=== PATIENT | male | born 1955 | race Caucasian/White ===

== ENCOUNTER → 2016-06-05 | Outpatient (CLI) | payer MEDICARE, OTHER ==
[~2016-06-05] MED LIST: ACETAMINOPHEN GT; ACETAMINOPHEN PO; ACETAMINOPHEN325 MG FT; ACETAMINOPHEN325 MG GT; ACETAMINOPHEN650 M1 GT; ADULT MUCU100 MG/5 M GT; ADULT WAL-100 MG/5 M GT; ALAVERT10 MG GT; ALB/IPRATROPIUM/1 E1 INH; ALBUTEROL; ALBUTEROL MININEB NEB; ALBUTEROL0.83 MG/ML INH; ALBUTEROL17 GM NEB; ALENDRONATE SOD70 MG GT; APAP325 M1 GT; ARTIFICIAL TEAR1 DRP OP; ARTIFICIAL TEAR15 M3 OU; ARTIFICIAL TEARS OU; ARTIFICIAL15 ML OPTH OU; ATROVENT; ATROVENT 0.03%30 ML INH; AUGMENTIN PO; AZACTAM IV; BACID; BACID FT; BACID GT; BACID PEG; BACID PO; BAZA ANTIFUNGAL57 GM TOP; BAZA PROTECT CR57 GM TOP; BISACODYL10 MG/SUPP; BISACODYL10 MG/SUPP PR; BROVANA15 MCG/2 M INH; BUDESONIDE0.5 MG/2 M INH; CALCIUM 500 + D1 TAB; CARDURA; CARDURA GT; CARDURA PO; CARDURA1 M1 PEG; CARDURA1 MG GT; CARDURA1 MG PEG; CARDURA2 MG FT; CARDURA2 MG GT; CARMEX TOP; CENTRUM; CENTRUM COMPLE1 EACH PEG; CENTRUM GT; CENTRUM MU9 MG/15 ML GT; CENTRUM MU9 MG/15 ML PEG; CENTRUM PO; CENTRUM240 ML FT; CENTRUM240 ML PO; CERTAVITE GT; CHEST CONG100 MG/51 GT; CHILDREN'S100 MG/55 GT; CIPROFLOXA IV; CITRATE OF MAG296 ML PO; CLARITIN10 M2 FT; CLARITIN10 M2 GT; CLARITIN10 M3 GT; CLARITIN10 M3 PEG; CLARITIN10 MG; CLARITIN10 MG GT; CLINDAMYCI IV; CLINDAMYCIN HC300 MG GT; COLACE; COMPLETE M9 MG/15 ML GT; COUGH SYRU100 MG/5 M GT; CYTOTEC; CYTOTEC GT; CYTOTEC PO; DESITIN DIAPER113 GM TOP; DESITIN60 GM TOP; DIASENSE MAGNE400 MG PEG; DIASTAT10 MG; DIASTAT10 MG PR; DOXAZOSIN MESYLA1 MG GT; DOXAZOSIN MESYLA2 MG GT; DUONEB 2.5-0.5 M3 ML INH; DUONEB 2.5-0.5 M3 ML NEB; E.E.S. 200200 MG/51 GT; E.E.S.-GRA200 MG/5 M; E.E.S.-GRA200 MG/5 M GT; ERYTHROMYC200 MG/5 M FT; ERYTHROMYC200 MG/5 M GT; ERYTHROMYC200 MG/51 PEG; ERYTHROMYCIN EYE OU; EUCERIN CREME454 GM TP; FINASTERIDE5 MG GT; FLAGYL PO; FLEET RC; FOSAMAX70 MG PO; FUROSEMIDE40 MG GT; FUROSEMIDE40 MG PEG; GAS RELIEF GT; GAS RELIEF40 MG/0.6 GT; GENAPAP325 MG GT; GENASYME GT; GLACIAL ACETIC A1 ML AU; IPRAT-ALBUT 0.5-3 ML INH; JEVITY; K-DUR20 ME2 GT; K-LOR HOSPITAL20 MEQ GT; K-SOL20 MEQ/15 GT; K-SOL20 MEQ/15 PEG; KCL FT; KCL GT; KCL PEG; KCL PO; KEPPRA PEG; KEPPRA XR750 MG PEG; KEPPRA1000 MG GT; KEPPRA1000 MG PEG; KEPPRA500 M1 GT; KEPPRA500 M2 FT; KEPPRA500 M2 GT; KEPPRA500 M2 PEG; KEPPRA500 M2 PO; KEPPRA500 MG GT; KEPPRA500 MG/51 PEG; KEPPRA750 M1 PO; KEPPRA750 MG; KEPPRA750 MG GT; KEPPRA750 MG PEG; KEPPRA750 MG PO; KLOR-CON GT; KLOR-CON PO; LACTULOSE10 G/15 ML GT; LACTULOSE10 G/15 ML PO; LASIX GT; LASIX PEG; LASIX PO; LASIX20 MG FT; LASIX20 MG GT; LASIX20 MG PEG; LASIX20 MG PO; LEVAQUIN PO; LEVAQUIN750 M1 PO; LEVAQUIN750 MG PEG; LEVAQUIN750 MG PO; LEVETIRACETAM GT; LEVOTHROID75 MCG; LEVOTHYROXINE100 MCG FT; LEVOTHYROXINE100 MCG GT; LEVOTHYROXINE100 MCG PEG; LEVOXYL125 MCG GT; LISINOPRIL2.5 MG GT; LISINOPRIL5 MG PEG; LORATADINE GT; LOVASTATIN10 MG GT; LOVASTATIN10 MG PEG; LOVASTATIN20 M1 GT; LOVASTATIN20 M1 PEG; LOVENOX120 MG/0.8 INJ; MAG-OX 400400 M1 GT; MAGNESIUM400 MG GT; MAGNESIUM400 MG PEG; MAGOX 400400 MG GT; MEDROL DOSEPAK4 MG PO; METOCLOPRAMI10 MG/ML GT; METOCLOPRAMID5 MG/M2 GT; METOCLOPRAMIDE GT; METOCLOPRAMIDE H5 MG GT; METOCLOPRAMIDE H5 MG PEG; MEVACOR GT; MEVACOR PEG; MIACALCIN4 ML; MIACALCIN4 ML NS; MIRALAX17 G2 GT; MIRALAX17 GM DOB; MIRALAX17 GM FT; MIRALAX17 GM GT; MIRALAX17 GM PEG; MIRALAX255 GM; MIRALAX255 GM GT; MIRALAX255 GM PEG; MIRALAX255 GM PO; MONTELUKAST SOD10 MG GT; MONTELUKAST SOD10 MG PEG; MUCOMYST200 MG/ML INH; MUCOMYST200 MG/ML NEB; MULTI VITAMIN; MULTIVITAM9 MG/15 ML GT; MYLICON40 MG/0.1 DOB; MYLICON40 MG/0.1 FT; MYLICON40 MG/0.1 GT; MYLICON40 MG/0.1 PEG; MYLICON40 MG/0.6; MYLICON40 MG/0.6 PO; NEOSPORIN28 GM TOP; NEXIUM 24HR20 MG GT; NEXIUM GT; NEXIUM PEG; NEXIUM40 MG/PACK GT; NEXIUM40 MG/PACK PEG; NORCO 5/325 TAB1 TAB PO; OMEPRAZOLE20 M2 GT; OMEPRAZOLE40 MG GT; OSMOLITE 1.21000 ML PEG; OTICIN HC DROPS10 ML OT; OXYGEN; PAIN RELIEVER325 M1 PEG; PATIENT'S PHARMACY; PERFOROMIS20 MCG/2 M INH; PERIDEX473 ML PO; PERIDEX480 ML; PERIDEX480 ML PO; POTASSIUM PEG; POTASSIUM40 MEQ/15 GT; PREDNISONE; PREDNISONE GT; PREDNISONE PO; PREVACID; PREVACID GT; PRILOSEC20 MG FT; PRINIVIL5 MG FT; PROBIOTIC1 EACH GT; PROSCAR5 MG; PROSCAR5 MG FT; PROSCAR5 MG GT; PROSCAR5 MG PEG; PROSCAR5 MG PO; PROVENTIL0.83 MG/ML INH; PULMICORT INH; PULMICORT0.25 MG/2 IH; PULMICORT0.5 MG/2 M IH; PULMICORT0.5 MG/2 M INH; PULMICORT0.5 MG/2 M NEB; PULMICORT0.5 MG/21 IH; REGLAN; REGLAN GT; REGLAN5 MG FT; ROBITUSSIN COU118 M5 PO; ROBITUSSIN100 MG/51 FT; ROBITUSSIN100 MG/51 PEG; SENNA CONCENTR8.6 MG GT; SENNA GT; SENNA8.8 MG/5 M; SENNA8.8 MG/5 M GT; SENNA8.8 MG/5 M PEG; SENNA8.8 MG/51 GT; SENOKOT60 M1 GT; SENOKOT60 ML FT; SENOKOT60 ML GT; SENOKOT60 ML PEG; SILVER NITRATE EXT; SILVER NITRATE30 GM TP; SINGULAIR; SINGULAIR FT; SINGULAIR GT; SINGULAIR PO; SYNTHROID; SYNTHROID GT; SYNTHROID PEG; SYNTHROID PO; SYNTHROID0.1 MG GT; SYNTHROID100 MCG/5 GT; SYNTHROID125 GT; SYNTHROID125 PEG; THERAGRAN; TRIAMCINOLONE AC1 GM EXT; TYLENOL325 M1 GT; TYLENOL325 M1 PEG; VANCOMYCIN HCL1 GM IV; VANCOMYCIN HCL1 GM IVF; VANCOMYCIN750 MG/250 IV; VANTIN200 MG PEG; VASOTEC; VIBRAMYCIN100 M1 PEG; VISINE TEARS DR15 ML OP; VISINE15 ML OU; VIT D; VITAMIN C GT; VITAMIN C PO; VITAMIN D-32000 UNIT GT; VITAMIN D1000 UNI1 FT; VITAMIN D1000 UNI1 GT; VITAMIN D1000 UNI1 PEG; VITAMIN D1000 UNI2 GT; VITAMIN D1000 UNIT GT; VITAMIN D1000 UNIT PEG; VITAMIN D1000 UNIT PO; VITAMIN D10000 UNIT PEG; VOSOL HC EAR DR10 M1 AU; VOSOL HC OTIC S10 ML AU; VOSOL HC OTIC S10 ML OU; XOPENEX; ZOSYN IV; [UNRECOGNIZED DRUG - OTHER]; [UNRECOGNIZED DRUG - OTHER] GT; [UNRECOGNIZED DRUG - OTHER] GT; [UNRECOGNIZED DRUG - OTHER] IV; [UNRECOGNIZED DRUG - OTHER] IV; [UNRECOGNIZED DRUG - OTHER] PEG; [UNRECOGNIZED DRUG - OTHER] PEG; [UNRECOGNIZED DRUG - OTHER] TOP; [UNRECOGNIZED DRUG - OTHER] TOP
--- NOTE | ~2016-06-05 | XA189 ---
[facility] A Service of [facility] & [facility] RADIOLOGY TEXT RESULTS PATIENT: RADHA MARTINEZ LOCATION: [facility] : 53 UNIT #: [id number] AGE: [address]: Tristan Porter MD SEX: M ORDER DR: [id number] [place], [place] [address] [id number] O MR#: [id number] Acc #: [id number] NAME: RADHA MARTINEZ : 1955 SEX: M STUDY DATE/TIME: 06/05/2016 16:06 UNIT: [facility] ROOM: STUDY DESCRIPTION: XA Replace GJ Tube Attending Physician: Tristan Porter Sr., M.D. Ordering Physician: Tristan Porter Sr., M.D. Primary Care Physician: Primary Care Physician No MEDICAL IMAGING REPORT This report is preliminary unless electronic signature is present EXAM Gastrojejunostomy tube replacement HISTORY The patient's existing gastrojejunostomy tube is clogged. TECHNIQUE Informed consent was obtained from the patient's provider service representative. The existing jejunostomy portion of the gastrojejunostomy tube was injected with Gastrografin opacifying the duodenum. The tip of the tube was noted to be in the second portion of the duodenum. An attempt was made to pass a guidewire through the tube but the tube was too clogged for the guidewire to pass to the tip. The balloon was deflated and the tube was removed. A new gastrojejunostomy tube was placed into the stomach and a guidewire was passed through it into the duodenum. Initially, a hydrophilic glidewire was used followed by an Amplatz wire. The tube was eventually manipulated into the third portion of the duodenum in satisfactory position. The balloon was inflated and cinched back against the anterior abdominal wall in satisfactory position. Total fluoroscopy time 14.4 minutes. 1 spot film obtained. IMPRESSION Successful replacement of the gastrojejunostomy tube under fluoroscopic guidance. Dictated by... Conrad Hawthorne M.D. THIS IS AN ELECTRONICALLY VERIFIED REPORT Conrad Hawthorne M.D. at 06/06/2016 5:02 PM KATE/jd [facility]. [facility] A Service of [facility] & [facility] RADIOLOGY TEXT RESULTS PATIENT: RADHA MARTINEZ LOCATION: [facility] #: [id number] : 51 UNIT #: [id number] AGE: [address]: Tristan Porter MD SEX: M ORDER DR: TD: 06/06/2016 09:59 JOB #: [id number] MEDICAL IMAGING REPORT COPY
== END | disposition home or self-care (01) ==
LOC: CIVR 13:51
DX: K94.23 Gastrostomy malfunction (principal); F73 Profound intellectual disabilities; G40.909 Epilepsy, unspecified, not intractable, without status epilepticus
CPT/HCPCS: 99144; 99153; J2250; J3010

== ENCOUNTER → 2016-08-13 | Outpatient (CLI) | payer MEDICARE, OTHER ==
--- NOTE | ~2016-08-13 | XA189 ---
[facility] A Service of [facility] RADIOLOGY TEXT RESULTS PATIENT: RADHA MARTINEZ LOCATION: [facility] : 53 UNIT #: [id number] AGE: [address]: Tristan Porter MD SEX: M ORDER DR: [id number] [address] [place], [place] [address] [id number] O MR#: [id number] Acc #: [id number] NAME: RADHA MARTINEZ. : 1955 SEX: M STUDY DATE/TIME: 08/13/2016 10:40 UNIT: [facility] ROOM: STUDY DESCRIPTION: XA Replace GJ Tube Attending Physician: Tristan Porter Sr., M.D. Referring Physician: Tristan Porter Sr., M.D. Ordering Physician: Tristan Porter Sr., M.D. Primary Care Physician: Primary Care Physician No MEDICAL IMAGING REPORT This report is preliminary unless electronic signature is present EXAM GJ tube replacement. INDICATIONS 60-year-old male with history of malnutrition and GJ tube dependent feeding whose tube is not working. The fluoroscopy time was 7 minutes. Reference air kerma 136 mGy. The risks, benefits and alternatives of the procedure were discussed with the patient's family roofing sales representative and informed consent was obtained. In the procedure room a timeout was performed confirming correct patient and procedure. All elements of maximum sterile-barrier technique utilized according guidelines appropriate for the seizure. TECHNIQUE/FINDINGS Initial fluoroscopy of the existing tube demonstrated that it is looped in the stomach. This tube was removed over a guidewire. Next, I was able to advance a Glidewire and C2 catheter into the jejunum. Next a 22-Persian GJ-tube was advanced over the superstiff glidewire, however the tube could not make the angle and flipped into the stomach. The gastric retention balloon was filled with 8 mL of sterile water and the tube was injected. The tip of the tube located within the duodenal bulb. The patient tolerated procedure well without immediate complications. IMPRESSION Attempted GJ tube replacement. Due to the angle of the insertion of the tube relative to the duodenum, I was unable to advance the tube into the jejunum and most of it is looped in the stomach. The tip of the tube is located in the duodenum. I would recommend consultation with GI to see if the tube can be pulled into the jejunum via endoscopic means. If the patient has risk for aspiration and I would put the patient on aspiration precautions. [facility] A Service of [facility] RADIOLOGY TEXT RESULTS PATIENT: RADHA MARTINEZ LOCATION: [facility] : 53 UNIT #: [id number] AGE: [address]: Tristan Porter MD SEX: M ORDER DR: Dictated by... Syd Weaver M.D. THIS IS AN ELECTRONICALLY VERIFIED REPORT Syd Weaver M.D. at 08/15/2016 7:33 AM Christiano TD: 08/14/2016 06:37 JOB #: [id number] MEDICAL IMAGING REPORT COPY
== END | disposition home or self-care (01) ==
LOC: CIVR 08:10
DX: Z43.1 Encounter for attention to gastrostomy (principal); Z88.0 Allergy status to penicillin; Z88.1 Allergy status to other antibiotic agents; Z88.8 Allergy status to other drugs, medicaments and biological substances
CPT/HCPCS: C1725; C1769; C1887; J2250; J3010; Q9967

== ENCOUNTER 2016-09-12 09:34 | Inpatient (IN) | payer MEDICARE, OTHER ==
--- NOTE | ~2016-09-12 | EKG ---
PATIENT: RADHA MARTINEZ UNIT #: [id number] Ventricular Rate: 77 BPM Atrial Rate: 77 BPM P-R Interval: 136 ms QRS Duration: 118 ms Q-T Interval: 402 ms QTC Calculation(Bezet): 454 ms P [place]: 34 degrees Calculated R [place]: 41 degrees Calculated T [place]: 46 degrees Diagnosis Line: Normal sinus rhythm Diagnosis Line: Non-specific intra-ventricular conduction delay Diagnosis Line: Cannot rule out , old Inferior infarct Diagnosis Line: Borderline ECG Diagnosis Line: No previous ECGs available Diagnosis Line: Confirmed by LEESA PARNELL MD ([id number]) on 09/13/2016 Diagnosis Line: 6:04:39 AM INTERPRETING MD: PARMJIT ERAZO
--- NOTE | ~2016-09-12 | CR63 ---
[facility] A Service of [facility] & [facility] RADIOLOGY TEXT RESULTS PATIENT: RADHA MARTINEZ LOCATION: [facility] : 53 UNIT #: [id number] AGE: [address]: Rylee Villaseñor MD SEX: M ORDER DR: [id number] [facility] [address]. [place], [place] [address] [id number] I MR#: [id number] Acc #: [id number] NAME: RADHA MARTINEZ : 1955 SEX: M STUDY DATE/TIME: 09/17/2016 7:50 UNIT: [facility] ROOM: [facility] STUDY DESCRIPTION: CR Chest 2 View Attending Physician: Rylee Villaseñor M.D. Referring Physician: Self Referral-Refer Use Only Ordering Physician: Chico Hubbard M.D. Primary Care Physician: Primary Care Physician No MEDICAL IMAGING REPORT This report is preliminary unless electronic signature is present EXAM Chest x-ray HISTORY Cough for the past 2 days. TECHNIQUE 2 views of the chest were obtained and compared with 09/13/2016 FINDINGS Mild cardiomegaly is seen. Bilateral perihilar infiltrates are noted. These infiltrates show no significant change from previous exam. No pleural fluid is seen and the vascular markings are normal. IMPRESSION Bilateral perihilar infiltrates are again noted and not significantly changed from previous exam. No new infiltrates are seen. Dictated by... Conrad Hawthorne M.D. THIS IS AN ELECTRONICALLY VERIFIED REPORT Conrad Hawthorne M.D. at 09/17/2016 3:48 PM RLF/kali TD: 09/17/2016 10:29 JOB #: [id number] MEDICAL IMAGING REPORT Page 1 of 1 COPY
--- NOTE | ~2016-09-12 | CO ---
Unit #: [id number] #: [id number] Patient: RADHA SULTANA [id number] [address] [place], [place] [address] [id number] MR#: [id number] NAME: RADHA SULTANA. ROOM: 216 Age: 61 Sex: M Admission Date: 09/12/2016 : 1955 Attending Physician: Rylee Villaseñor M.D. Consultation Date: 09/13/2016 CONSULTATION REPORT HISTORY OF PRESENT ILLNESS Mr. Sultana is a 61-year-old resident of [place], who was sent here because of decreased O2 sats. He was sent to the emergency room. His O2 saturation was 88% on room air. He was somewhat tachycardic. Blood pressure was 95/61. He was admitted with possible sepsis and healthcare acquired pneumonia. Chest x-ray showed marked rotation and possible right lung infiltrate. He is unable to provide any history. PAST MEDICAL HISTORY Significant for profound mental retardation, chronic aspiration, history of PEG tube placement, history of colostomy, history of seizure disorder, hypothyroidism, history of BPH, cerebral palsy. PAST SURGICAL HISTORY PEG tube placement, colostomy, multiple EGDs and colonoscopies. FAMILY HISTORY Unknown. ALLERGIES Zosyn, penicillins, pneumococcal vaccine, Reglan. SOCIAL HISTORY Unknown. SOCIAL HISTORY Resident of [place]. REVIEW OF SYSTEMS Not possible patient. Nonverbal. PHYSICAL EXAMINATION VITAL SIGNS: Blood pressure is 103/46, pulse 83, respiratory rate 18, afebrile. T-max 100.4. HEENT: Normocephalic and atraumatic. Left cornea opacified. Nasal passages patent. Oral cavity patent. Poor dentition. NECK: Supple. Trachea midline. No cervical or supraclavicular lymphadenopathy. LUNGS: Scattered rhonchi. CARDIAC: Regular rate and rhythm. Could not appreciate murmur, rub, or gallop. ABDOMEN: Nontender. Bowel sounds present. No hepatosplenomegaly. Colostomy tube, G-tube. He has flexion contractures. EXTREMITIES: No edema. Unit #: [id number] #: [id number] Patient: RADHA SULTANA SKIN: Warm and dry. NEUROLOGIC: Affect calm. LABORATORY STUDIES BMP remarkable for glucose of 65, otherwise unremarkable. BNP is 69. Lactic acid is 5.6 on admission, currently it is 0.6. Coags were normal. White blood cell count was 7400, hematocrit of 38.2, platelet count normal. IMPRESSION 1. Possible right-sided pneumonia, methicillin-resistant Staphylococcus aureus/gram negative. 2. Acute hypoxemic respiratory failure. 3. Possible sepsis syndrome. 4. Profound mental retardation. 5. Seizure disorder. 6. Cerebral palsy. 7. DNR status. PLAN Cover with broad-spectrum antibiotics. Obtain cultures and deescalate antibiotics based on culture results. Fluid resuscitation, nutrition, DVT prophylaxis. Further recommendations pending. Dictated by... Chico Hubbard M.D. FUNMI/alicia TD: 09/14/2016 02:02 JOB #: [id number] CONSULTATION REPORT Page 1 of 1 X Chico Hubbard MD X CONSULTATION REPORT
--- NOTE | ~2016-09-12 | CR72 ---
[facility] A Service of [facility] & [facility] RADIOLOGY TEXT RESULTS PATIENT: RADHA MARTINEZ LOCATION: [facility] : 53 UNIT #: [id number] AGE: [address]: Brent Bingham MD SEX: M ORDER DR: [id number] [facility] [address] [place], [place] [address] [id number] MR#: [id number] Acc #: [id number] NAME: RADHA MARTINEZ. : 1955 SEX: M STUDY DATE/TIME: 09/12/2016 8:34 UNIT: [facility] ROOM: STUDY DESCRIPTION: CR Chest Single View Portable Attending Physician: Brent Bingham M.D. Referring Physician: Maikel Self Referred Ordering Physician: Brent Bingham M.D. Primary Care Physician: No Primary Care Physician MEDICAL IMAGING REPORT This report is preliminary unless electronic signature is present EXAM AP portable chest, 09/12/2016. HISTORY 61-year-old male in the ED complaining of new onset shortness of air today. Past history of congestive heart failure. Asthma. TECHNIQUE AP portable chest x-ray. FINDINGS Limited examination due to patient positional rotation to the right. There may be focal infiltrate or atelectasis in the right lung base. Remaining portions of both lungs are clear. Mild cardiomegaly with normal pulmonary vascularity. IMPRESSION Possible infiltrate or atelectasis right lung base. Dictated by... Josh Barcenas M.D. THIS IS AN ELECTRONICALLY VERIFIED REPORT Josh Barcenas M.D. at 09/12/2016 1:32 PM AYALAW/dorie TD: 09/12/2016 10:00 JOB #: [id number] MEDICAL IMAGING REPORT Page 1 of 1 COPY
--- NOTE | ~2016-09-12 | HP ---
Unit #: [id number] #: [id number] Patient: RADHA MARTINEZ [id number] [address] [address] [id number] MR#: [id number] NAME: RADHA MARTINEZ ROOM: Age: 61 Sex: M Admission Date: 09/12/2016 : 1955 Attending Physician: Brent España M.D. Referring Physician: Self Referral-Refer Use Only Primary Care Physician: No Primary Care Physician HISTORY AND PHYSICAL CHIEF COMPLAINT Hypoxia. HISTORY OF PRESENTING ILLNESS A 61-year-old male with multiple medical problems is a resident of [facility]. He is not able to provide any history. Most of the history was taken from the chart and from the sitter who is at the bedside. The patient resides in [facility]. He has profound mental retardation. The patient was found to be hypoxic in [facility] and was transferred to ER. The patient's saturation was 88% on room air on admission and the patient was tachycardiac. The patient's blood pressure is low, 95/61. The patient is being admitted with sepsis and healthcare-facility acquired pneumonia. There is no history of cough or sputum production. There is no history of vomiting. No history of fever. PAST MEDICAL HISTORY 1. Profound mental retardation. 2. History of chronic aspiration. 3. History of PEG placement. 4. Seizure disorder. 5. History of hypothyroidism. 6. History of BPH. 7. History of cerebral palsy. 8. History of colostomy in the past. PAST SURGICAL HISTORY 1. History of PEG placement. 2. History of colostomy. 3. History of multiple EGDs and colonoscopy. SOCIAL HISTORY The patient is a resident of [facility]. FAMILY HISTORY Unknown. ALLERGIES Zosyn, amoxicillin, Augmentin, pneumococcal vaccine and Reglan. REVIEW OF SYMPTOMS As per history of presenting illness, the patient is not able to provide any history. Unit #: [id number] #: [id number] Patient: RADHA MARTINEZ PHYSICAL EXAMINATION GENERAL APPEARANCE: The patient is lying comfortably in bed. VITAL SIGNS: Oxygen saturation 88% on room air. Blood pressure 95/61. The patient is hypotensive. Respiratory rate 14. Pulse 77. HEENT: Head is normocephalic. Eye movements are normal. The patient is moving his extremities, upper and lower. CHEST: Decreased air entry. Bilateral crackles are heard. CARDIOVASCULAR: S1, S2 positive. Regular rhythm. ABDOMEN: Soft. PEG tube is in place. Colostomy bag is in place. EXTREMITIES: Negative edema. The patient has contractures. CENTRAL NERVOUS SYSTEM: Awake, alert and moving all his extremities, not able to follow any commands because of his mental retardation and cerebral palsy. DIAGNOSTIC STUDIES LABORATORY: WBC 7.4, hemoglobin 12.4, hematocrit 38.2, platelet count 166. PT and INR 10.4 and 1.0. Sodium 139, potassium 4.3, chloride 100, BUN 15, creatinine 0.7. Liver enzymes are stable. Lactic acid 5.6. BNP 66. Troponin is less than 0.05. IMAGING: Chest x-ray was done which shows possible infiltrate in the right lung base. ASSESSMENT AND PLAN The patient is being admitted to [facility] with the diagnosis of: 1. Acute hypoxic respiratory failure. 2. Sepsis. 3. Healthcare-acquired pneumonia. 4. Chronic aspiration. 5. Hypothyroidism. 6. Seizure disorder. 7. Hyperlipidemia. 8. Profound mental retardation. PLAN 1. Admit to med/surg. Dr. Rufus Hubbard has been consulted. The patient is on two liters oxygen and saturation is 90%. 2. Lovenox 40 mg subcu daily. 3. Continue Protonix for peptic ulcer disease prophylaxis. The patient is being started on IV vancomycin, tobramycin and aztreonam. Pharmacy will be consulted to dose his medications. 4. Sputum culture will be done. The patient is being started on sepsis protocol. Repeat lactic acid will be done. IV fluids normal saline at 100 mL/hour. Mini neb treatment will be started. Home medications have been reviewed and adjusted. Blood pressure medications are on hold at this time because of hypertension. 5. Feeds will be continued as per [facility]. Please refer to progress note for further orders. Dictated by Yumiko Carmona TD: 09/12/2016 13:52 JOB #: [id number] Unit #: [id number] #: [id number] Patient: RADHA MARTINEZ HISTORY AND PHYSICAL Page 1 of 1 X Rylee Villaseñor MD HISTORY AND PHYSICAL
--- NOTE | ~2016-09-12 | DS ---
Unit #: [id number] #: [id number] Patient: RADHA SULTANA [id number] [address] [address] [id number] I MR#: [id number] NAME: RADHA SULTANA ROOM: 216 Age: 61 Sex: M Admission Date: 09/12/2016 : 1955 Discharge Date: 09/18/2016 Attending Physician: Rylee Villaseñor M.D. Referring Physician: Self Referral-Refer Use Only Primary Care Physician: No Primary Care Physician DISCHARGE SUMMARY FINAL DIAGNOSES 1. Acute respiratory failure. 2. Aspiration pneumonia. 3. Seizure disorder. 4. Profound mental retardation. 5. Hypothyroidism. 6. Chronic aspirations. DISCHARGE MEDICATIONS 1. IV vancomycin 1 g q.12 h. for 7 more days as per Dr. Hubbard. 2. Aztreonam 2 g q.8 h. for 7 more days as per Dr. Hubbard. 3. Continue the rest of the home medications. Please note medication reconciliation will be faxed to [facility] facility. CONSULTANTS Dr. Rufus Hbubard. DIAGNOSTIC DATA LABORATORY: On discharge, blood cultures were no growth. BMP shows sodium 140, potassium 4.4, chloride 110, BUN 12, creatinine 0.5. CBC shows white blood cell count 7.4, hemoglobin 9.4, hematocrit 28.3, platelets 135, procalcitonin level 0.10, lactic acid 5.6 on admission, BNP 69. IMAGING: Chest x-ray, PA and lateral, show bilateral perihilar infiltrates. HOSPITAL COURSE Mr. Radha Sultana is a 61-year-old male who is very well known to us. He has had multiple admissions with aspiration pneumonia. He was sent from [place] with decreased oxygen saturation. His O2 saturation was 88% on room air. Blood pressure was 95/61. The patient was admitted with possible sepsis and healthcare acquired pneumonia. Dr. Rufus Hubbard was consulted. The patient was started on broad spectrum IV antibiotics with IV Vancomycin, Zosyn and tobramycin. Tobramycin was discontinued on 09/17/2016. He will need to continue two antibiotics for seven more days. The patient's room air pulse oximetry was 97%. The patient will need 2 liters of O2 to keep saturations above 94%. The patient is stable at this time and is being discharged back to [facility] in stable condition. PHYSICAL EXAMINATION VITALS: At discharge, blood pressure 110/49, respiratory rate 15, pulse Unit #: [id number] #: [id number] Patient: RADHA SULTANA 87, temperature 98.9. HEENT: Head is normocephalic. CHEST: Decreased air entry bilaterally. HEART: S1 and S2 positive. Regular rhythm. DISPOSITION The patient is being discharged to [facility]. DISCHARGE INSTRUCTIONS 1. Medications per medication reconciliation. 2. Follow-up pulmonary clinic with Dr. Hubbard in one week. Dictated by... Yumiko Carmona TD: 09/18/2016 11:25 JOB #: [id number] DISCHARGE SUMMARY Page 1 of 1 X Rylee Villaseñor MD X DISCHARGE SUMMARY
--- NOTE | ~2016-09-12 | A ---
[facility] Nutrition Therapy DATE: 09/13/16 Patient: RADHA MARTINEZ Physician: NAEL Address: [facility] Room/Bed: [address] [place] [address], Zip: [place] [address] Admit Date: 09/12/16 Date of : [birth year] Height: Weight: 132 59.87 NUTRITIONAL ASSESSMENT: REASON: 1 pt RE: Tube Feed Assessment 61 yo male admitted for hypoxia PMH: Mental retardation, chronic aspiration, s/p PEG, seizure disorder, hypothyroidism, cerebral palsy, BPH Anthropometrics: Ht: 5'4" Wt: 60 kg (132#) BMI: 22.7 Labs: Gluc 65 Meds: NaCl, K, Lipitor, Miralax, Protonix, Vitamin D, Synthroid (PO) I/O & Bowel function: 1400/3, last BM 09/13 Skin Integrity: G tube site (abd), healed wound (coccyx), red rash (fron coban L AC), no edema noted Estimated Nutrition Needs: 3377-3383 kcal (25-30 kcal/kg) 72-90 g protein (1.2-1.5 g/kg) Assessment: Chart reviewed, events noted. Pt non-verbal, resident of [facility]. Per chart, pt receives Osmolite 1.2 @ 115 mL/hr from 9A-8P at [facility] w/ 50 mL flushes q 4 hrs. This provides 1518 kcal/ 70 g protein/ 1037 mL free H2O. See recommendations below. Dx: Inadequate oral intake RT PMH AEB PEG TUBE, need for sole source enteral nutrition support. Intervention: 1. Enteral nutrition Monitoring, Evaluation and Goals: 1. Enteral nutrition; provide >80% of estimated needs 2. Weight; prevent unintentional weight loss Recommendations: 1. Recommend to begin enteral nutrition support of Osmolite 1.2 @ 20 ml/hr, advance 10 mL/hr Q 6 hours to goal rate of 65 mL/hr x 22 hrs. This will provide 1716 kcal/ 79 g protein/ 878 mL free H2O. Add free water flushes per [facility] Nutrition Therapy DATE: 09/13/16 Patient: RADHA MARTINEZ Physician: NAEL Address: [facility] Room/Bed: [address] [place] [address], Zip: [place] [phone] Admit Date: 09/12/16 Date of : [birth year] Height: Weight: 132 59.87 2. Monitor for signs of intolerance of TFs *PLEASE NOTE: ENTERAL NUTRITION CALCULATED 22 HRS TO ACCOUNT FOR HOLDING SYNTHROID FOR ONE HOUR BEFORE AND ONE HOUR AFTER ADMINISTRATION OF SYNTHROID. IF PT IS NO LONGER TAKING SYNTHROID, OR IT IS ADMINISTERED VIA IV, PLEASE CONSULT RD TO RE-CALCULATE TFS* Pt is at a mild nutritional risk. RD will f/u per protocol. Respectfully, Beth Subramanian, [employer] Leader Eleazar Jj MS, RD, LD [employer] [facility] cc: client file
--- NOTE | ~2016-09-12 | CR72 ---
[facility] A Service of [facility] RADIOLOGY TEXT RESULTS PATIENT: RADHA MARTINEZ LOCATION: [facility] : 51 UNIT #: [id number] AGE: [address]: Rylee Villaseñor MD SEX: M ORDER DR: [id number] [facility] [address] [facility]. [place], [place] [address] [id number] MR#: [id number] Acc #: [id number] NAME: RADHA MARTINEZ. : 1955 SEX: M STUDY DATE/TIME: 09/13/2016 13:23 UNIT: [facility] ROOM: [facility] STUDY DESCRIPTION: CR Chest Single View Portable Attending Physician: Rylee Villaseñor M.D. Referring Physician: Self Referral-Refer Use Only Ordering Physician: Rylee Villaseñor M.D. Primary Care Physician: No Primary Care Physician MEDICAL IMAGING REPORT This report is preliminary unless electronic signature is present EXAM AP portable chest 09/13/2016 HISTORY Follow up pneumonia. TECHNIQUE AP portable chest x-ray. FINDINGS Patchy right basilar infiltrate and atelectasis appear unchanged since yesterday. Slight increase in diffuse interstitial markings since yesterday. This may be a function of shallow lung expansion, but new onset mild vascular congestion is a consideration, correlate clinically. Stable mild cardiomegaly. No visible pleural effusion. Gastrostomy tube superimposed over the upper midline abdomen. IMPRESSION 1. Stable right basilar infiltrate. 2. Possible developing mild vascular congestion. 3. Low lung volumes. Dictated by... Josh Barcenas M.D. THIS IS AN ELECTRONICALLY VERIFIED REPORT Josh Barcenas M.D. at 09/13/2016 10:42 PM PADMAJA/danilo TD: 09/13/2016 17:49 JOB #: [id number] [facility] A Service of [facility] RADIOLOGY TEXT RESULTS PATIENT: RADHA MARTINEZ LOCATION: [facility] : 51 UNIT #: [id number] AGE: [address]: Rylee Villaseñor MD SEX: M ORDER DR: MEDICAL IMAGING REPORT Page 1 of 1 COPY
[2016-09-12 10:17] LABS: BASOPHIL% 0.4 % (0-2.5); EOSINOPHIL# 0.2 X10e3 (0-0.7); EOSINOPHIL% 2.4 % (0.0-7.0); HEMATOCRIT 38.2 % (38.0-50.0); HEMOGLOBIN 12.4 gm/dL (13.0-16.0); LYMPHOCYTE# 1.2 X10e3 (1.0-3.5); LYMPHOCYTE% 15.9 % (17.0-45.0); MEAN CELL VOLUME 97.4 FL (83-96); MEAN CORPUSCULAR HEMOGLOBIN 31.6 PG (28-34); MEAN CORPUSCULAR HGB CONC 32.4 g/dL (30-36); MEAN PLATELET VOLUME 9.3 FL (6.5-11.5); MONOCYTE# 0.8 X10e3 (0-1.0); MONOCYTE% 11.2 % (3.0-12.0); NEUTROPHIL# 5.2 X10e3 (1.5-7.1); NEUTROPHIL% 70.1 % (40-75); PLATELET COUNT 166 X10e3 (140-420); RED BLOOD COUNT 3.92 X10e (3.90-5.60); RED CELL DISTRIBUTION WIDTH 15.8 % (11.0-15.5); WHITE BLOOD COUNT 7.4 X10e3 (4.0-10.5)
[2016-09-12 10:20] LABS: DIFF IND NO
[2016-09-12 10:29] LABS: PROTHROMBIN TIME (PATIENT) 10.4 SECONDS (9.6-11.5)
[2016-09-12 10:43] LABS: BILIRUBIN, DIRECT 0.1 mg/dL (0.0-0.2); BILIRUBIN,INDIRECT 0.3 mg/dL (0.0-0.9); BILIRUBIN,TOTAL 0.4 mg/dL (0.2-2.0); BUN/CREATININE RATIO 21.42; CALCIUM SERUM 9.5 mg/dL (8.4-10.2); CREATININE SERUM 0.7 mg/dL (0.6-1.4); GLOM FILT RATE Estimated 100.5 mL/min (>60); POTASSIUM 4.3 mmol/L (3.5-5.1); PROTEIN TOTAL SERUM 7.5 g/dL (6.0-8.3)
[2016-09-12 11:03] LABS: POC - CKMB 1.9 ng/mL (0.0-7.9); POC - TROPONIN <0.05 ng/mL (<=0.05)
[2016-09-13 15:15] LABS: BASOPHIL% 0.6 % (0-2.5); EOSINOPHIL# 0.1 X10e3 (0-0.7); EOSINOPHIL% 2.2 % (0.0-7.0); HEMATOCRIT 30.3 % (38.0-50.0); LYMPHOCYTE# 0.3 X10e3 (1.0-3.5); LYMPHOCYTE% 5.4 % (17.0-45.0); MEAN CELL VOLUME 97.7 FL (83-96); MEAN CORPUSCULAR HEMOGLOBIN 31.8 PG (28-34); MEAN CORPUSCULAR HGB CONC 32.6 g/dL (30-36); MEAN PLATELET VOLUME 9.1 FL (6.5-11.5); MONOCYTE# 0.3 X10e3 (0-1.0); MONOCYTE% 7.4 % (3.0-12.0); NEUTROPHIL% 84.4 % (40-75); PLATELET COUNT 110 X10e3 (140-420); RED CELL DISTRIBUTION WIDTH 15.5 % (11.0-15.5); WHITE BLOOD COUNT 4.7 X10e3 (4.0-10.5)
[2016-09-13 15:27] LABS: DIFF IND NO; HEMOGLOBIN 9.9 gm/dL (13.0-16.0)
[2016-09-13 15:33] LABS: BUN/CREATININE RATIO 21.42; CALCIUM SERUM 7.5 mg/dL (8.4-10.2); CREATININE SERUM 0.7 mg/dL (0.6-1.4); GLOM FILT RATE Estimated 100.5 mL/min (>60)
[2016-09-14 05:34] LABS: HEMATOCRIT 30.4 % (38.0-50.0); MEAN CORPUSCULAR HEMOGLOBIN 31.8 PG (28-34); MEAN CORPUSCULAR HGB CONC 32.8 g/dL (30-36); MEAN PLATELET VOLUME 9.2 FL (6.5-11.5); RED BLOOD COUNT 3.14 X10e (3.90-5.60); RED CELL DISTRIBUTION WIDTH 15.7 % (11.0-15.5); WHITE BLOOD COUNT 4.9 X10e3 (4.0-10.5)
[2016-09-14 09:20] LABS: CALCIUM SERUM 8.3 mg/dL (8.4-10.2); CREATININE SERUM 0.6 mg/dL (0.6-1.4); POTASSIUM 4.8 mmol/L (3.5-5.1)
[2016-09-16 05:06] LABS: HEMATOCRIT 28.3 % (38.0-50.0); HEMOGLOBIN 9.4 gm/dL (13.0-16.0); MEAN CELL VOLUME 95.6 FL (83-96); MEAN CORPUSCULAR HEMOGLOBIN 31.8 PG (28-34); MEAN CORPUSCULAR HGB CONC 33.2 g/dL (30-36); MEAN PLATELET VOLUME 8.6 FL (6.5-11.5); RED BLOOD COUNT 2.96 X10e (3.90-5.60); RED CELL DISTRIBUTION WIDTH 14.9 % (11.0-15.5); WHITE BLOOD COUNT 7.4 X10e3 (4.0-10.5)
[2016-09-16 06:07] LABS: CALCIUM SERUM 8.4 mg/dL (8.4-10.2); CREATININE SERUM 0.5 mg/dL (0.6-1.4); GLOM FILT RATE Estimated 115.4 mL/min (>60); MAGNESIUM 1.7 mg/dL (1.6-3.0); PHOSPHOROUS 2.4 mg/dL (2.5-4.6); POTASSIUM 4.1 mmol/L (3.5-5.1)
[2016-09-17 07:23] LABS: CALCIUM SERUM 8.6 mg/dL (8.4-10.2); CREATININE SERUM 0.5 mg/dL (0.6-1.4); GLOM FILT RATE Estimated 115.4 mL/min (>60); PHOSPHOROUS 4.1 mg/dL (2.5-4.6); POTASSIUM 4.4 mmol/L (3.5-5.1)
== END 2016-09-18 15:09 | DRG 871 ==
LOC: CED 09:34 → CEDOF 13:15 → C2A 18:47
PROVIDERS: Emergency Medicine; Internal Medicine; Physician Assistant Medical
PROC: 05H533Z Insertion of Infusion Device into Right Subclavian Vein, Percutaneous Approach (ICD-10-PCS; principal; 2016-09-17)
PROC: B546ZZA Ultrasonography of Right Subclavian Vein, Guidance (ICD-10-PCS; 2016-09-17)
DX: A41.9 Sepsis, unspecified organism (principal); J96.01 Acute respiratory failure with hypoxia; J69.0 Pneumonitis due to inhalation of food and vomit; J15.212 Pneumonia due to Methicillin resistant Staphylococcus aureus; J15.6 Pneumonia due to other Gram-negative bacteria; R53.2 Functional quadriplegia; F73 Profound intellectual disabilities; G40.909 Epilepsy, unspecified, not intractable, without status epilepticus; E03.9 Hypothyroidism, unspecified; N40.0 Benign prostatic hyperplasia without lower urinary tract symptoms; G80.9 Cerebral palsy, unspecified; Z88.7 Allergy status to serum and vaccine; E78.5 Hyperlipidemia, unspecified; Z93.3 Colostomy status; Z88.0 Allergy status to penicillin; Z66 Do not resuscitate
CPT/HCPCS: 71010; 71020; 80048; 80076; 80200; 80202; 82308; 82553; 83605; 83735; 83880; 84100; 84484; 85025; 85027; 85610; 87040; 93005; 94640; 94760; 99291; J1650; J3260; J3370

== ENCOUNTER → 2017-01-09 | Outpatient (CLI) | payer MEDICARE, OTHER | END | disposition home or self-care (01) | LOC: CRAD 09:42 | DX: R13.10 Dysphagia, unspecified (principal) | CPT/HCPCS: 74230; 92611; G8996-GN; G8997-GN; G8998-GN ==